=== PATIENT | female | born 1960 | race Caucasian/White ===

== ENCOUNTER 2018-05-13 12:45 | Outpatient (CLI) | payer OTHER ==
[~2018-05-13] VITALS: Ht 162.6 cm; Wt 136.1 kg
[2018-05-13 13:45] LABS: BASOPHILS % (AUTO) 0.5 % (0-1); EOSINOPHILS # (AUTO) 0.2 X10'3 (0-0.9); EOSINOPHILS % (AUTO) 3.1 % (0-6); LYMPHOCYTES # (AUTO) 2.2 X10'3 (1.1-4.8); LYMPHOCYTES % (AUTO) 36.8 % (21-51); MEAN CORPUSCULAR HEMOGLOBIN 28.5 PG (27.0-31.0); MEAN CORPUSCULAR HGB CONC 33.7 g/dL (33.0-36.5); MEAN CORPUSCULAR VOLUME 84.5 FL (78-98); MEAN PLATELET VOLUME 8.6 FL (7.4-10.4); MONOCYTES # (AUTO) 0.4 X10'3 (0-0.9); MONOCYTES % (AUTO) 6.8 % (2-12); NEUTROPHILS # (AUTO) 3.1 X10'3 (1.8-7.7); NEUTROPHILS % (AUTO) 52.8 % (42-75); PRE OP HEMATOCRIT 43.1 % (35.0-45.0); PRE OP HEMOGLOBIN 14.5 g/dL (12.0-16.0); PRE OP PLATELET COUNT 204 X10'3 (140-440); RED CELL DISTRIBUTION WIDTH 13.5 % (11.5-14.5)
[2018-05-13 14:02] LABS: ALBUMIN 3.7 G/DL (3.4-5.0); ALBUMIN/GLOBULIN RATIO 1.1 (1.1-1.5); ALKALINE PHOSPHATASE 47 IU/L (46-116); BLOOD UREA NITROGEN 15 MG/DL (7-18); BUN/CREATININE RATIO 19.2 (6.6-38.0); CALCIUM 9.3 MG/DL (8.5-10.1); CHLORIDE 104 MMOL/L (99-107); CREATININE 0.78 MG/DL (0.40-0.90); PRE OP ALT 46 U/L (30-65); PRE OP ANION GAP 8 (8-16); PRE OP AST 27 U/L (10-37); PRE OP BILIRUB, TOTAL 1.1 MG/DL (0.0-1.0); PRE OP GLUCOSE 95 MG/DL (70-104); PRE OP POTASSIUM 3.7 MMOL/L (3.4-5.1); PRE OP SODIUM 141 MMOL/L (135-145); TOTAL CARBON DIOXIDE 29.2 MMOL/L (24-32); TOTAL PROTEIN 7.1 G/DL (6.4-8.2); eGFR 75 ML/MIN
[2018-05-13] MEDS ORDERED: ASCO-261 PO (16:34)
[2018-05-13] MEDS ORDERED: CINN500C2 (16:34)
[2018-05-13] MEDS ORDERED: TRAM50TA2 PO (16:34)
[2018-05-13] MEDS ORDERED: PROP60TA19 PO (16:34)
[2018-05-13] MEDS ORDERED: INDO50CA14 PO (16:34)
[2018-05-13] MEDS ORDERED: MULT-1085 PO (16:34)
[2018-05-13] MEDS ORDERED: VITA1TAB20 PO (16:34)
[2018-05-13] MEDS ORDERED: OMEP40CA37 PO (16:34)
[2018-05-13] MEDS ORDERED: TUMERIC (16:34)
[2018-05-13] MEDS ORDERED: ACET-812 PO (16:34)
[2018-05-13] MEDS ORDERED: CHOL2000 PO (16:34)
[2018-05-21] MEDS ORDERED: ringers solution, lacted 1,000 ML IV SCH (05:00)
[2018-05-21] MEDS ORDERED: DOCUMENT DATE & TIME OF BETA-BLOCKER PO ONE (05:30)
[2018-05-21] MEDS ORDERED: oxyCODONE SR 10mg (sust. release) tab -2 tabs (20mg) PO ONE (05:30)
[2018-05-21] MEDS ORDERED: famotidine 20mg tablet PO ONE (05:30)
[2018-05-21] MEDS ORDERED: ceFAZolin inj. 3,000 MG in normal saline 100ml IV soln 100 ML IV ONE (05:30)
== END 2018-05-13 23:59 | disposition home or self-care (01) ==
LOC: PRE-OP 12:45 → EDSTATUS 05-21 15:15
PROVIDERS: ATTEND Orthopaedic Surgery
DX: M19.212 Secondary osteoarthritis, left shoulder (principal); Z01.812 Encounter for preprocedural laboratory examination; S43.422A Sprain of left rotator cuff capsule, initial encounter; M66.822 Spontaneous rupture of other tendons, left upper arm
CPT/HCPCS: 36415; 80053; 85025; 93005

== ENCOUNTER 2018-07-02 08:21 | Day surgery (SDC) | payer OTHER ==
[2018-06-24 13:04] LABS: BASOPHILS # (AUTO) 0.1 X10'3 (0-0.2); BASOPHILS % (AUTO) 1.3 % (0-1); EOSINOPHILS # (AUTO) 0.1 X10'3 (0-0.9); EOSINOPHILS % (AUTO) 2.4 % (0-6); LYMPHOCYTES # (AUTO) 1.9 X10'3 (1.1-4.8); LYMPHOCYTES % (AUTO) 35.3 % (21-51); MEAN CORPUSCULAR HEMOGLOBIN 28.2 PG (27.0-31.0); MEAN CORPUSCULAR HGB CONC 33.8 g/dL (33.0-36.5); MEAN CORPUSCULAR VOLUME 83.6 FL (78-98); MEAN PLATELET VOLUME 8.7 FL (7.4-10.4); MONOCYTES # (AUTO) 0.5 X10'3 (0-0.9); MONOCYTES % (AUTO) 8.4 % (2-12); NEUTROPHILS # (AUTO) 2.8 X10'3 (1.8-7.7); NEUTROPHILS % (AUTO) 52.6 % (42-75); PRE OP HEMATOCRIT 42.4 % (35.0-45.0); PRE OP HEMOGLOBIN 14.3 g/dL (12.0-16.0); PRE OP PLATELET COUNT 203 X10'3 (140-440); RED BLOOD COUNT 5.08 X10'6 (4.20-5.60); RED CELL DISTRIBUTION WIDTH 13.4 % (11.5-14.5)
[2018-06-24 13:17] LABS: ALBUMIN 3.6 G/DL (3.4-5.0); ALBUMIN/GLOBULIN RATIO 1.1 (1.1-1.5); ALKALINE PHOSPHATASE 47 IU/L (46-116); BLOOD UREA NITROGEN 14 MG/DL (7-18); BUN/CREATININE RATIO 17.3 (6.6-38.0); CALCIUM 9.4 MG/DL (8.5-10.1); CHLORIDE 106 MMOL/L (99-107); CREATININE 0.81 MG/DL (0.40-0.90); PRE OP ALT 43 U/L (30-65); PRE OP ANION GAP 7 (8-16); PRE OP AST 25 U/L (10-37); PRE OP BILIRUB, TOTAL 0.9 MG/DL (0.0-1.0); PRE OP GLUCOSE 106 MG/DL (70-104); PRE OP POTASSIUM 4.1 MMOL/L (3.4-5.1); PRE OP SODIUM 142 MMOL/L (135-145); TOTAL CARBON DIOXIDE 28.6 MMOL/L (24-32); TOTAL PROTEIN 6.8 G/DL (6.4-8.2); eGFR 72 ML/MIN
[~2018-07-02] VITALS: Ht 162.6 cm; Wt 145.8 kg
[2018-07-02] VITALS (14 sets, daily range): BP systolic 131–178; BP diastolic 72–99
[~2018-07-02 08:21] MED LIST: ASCO-261 PO; BETA15CR4 TOP; CHOL2000 PO; DOCUMENT DATE & TIME OF BETA-BLOCKER PO ONE; MULT-1085 PO; OMEP40CA37 PO; PROP60TA19 PO; TRAM50TA2 PO; VITA1TAB20 PO; acetaminophen 325mg tablet PO ONE; ceFAZolin inj. 3,000 MG in normal saline 100ml IV soln 100 ML IV ONE; famotidine 20mg tablet PO ONE; gabapentin 300mg capsule PO ONE; metoclopramide 5 mg/ml inj IV ONE; oxyCODONE SR 10mg (sust. release) tab -2 tabs (20mg) PO ONE; ringers solution, lacted 1,000 ML IV SCH; tranexamic acid inj. 1,000 MG in normal saline 100 ML IV ONE
[2018-07-02] MEDS ORDERED: epiNEPHrine 1 mg/ml 30ml MDV ONE (09:15)
[2018-07-02] MEDS ORDERED: BUPIVAcaine/PF 2.5mg/ml (0.25%) 10ml vial ONE ×2 (09:16→11:06)
[2018-07-02] MEDS ORDERED: ondansetron/PF 4mg/2ml inj ONE (10:31)
[2018-07-02] MEDS ORDERED: hydrALAZINE 20mg/ml inj. IV ONE (10:31)
[2018-07-02] MEDS ORDERED: sevoflurane 250ml liquid IH ONE (10:31)
[2018-07-02] MEDS ORDERED: midazolam 2 mg/2 ml injection ONE (10:32)
[2018-07-02] MEDS ORDERED: fentaNYL /PF 50mcg/ml 5ml ampule ONE (10:33)
[2018-07-02] MEDS ORDERED: meperidine/PF 25mg/ml syringe IV PRN ×2 (11:35)
[2018-07-02] MEDS ORDERED: ringers solution, lacted 1,000 ML IV SCH (11:35)
[2018-07-02] MEDS ORDERED: proCHLORperazine 10 MG/2 ml inj IV PRN (11:35)
[2018-07-02] MEDS ORDERED: ondansetron/PF 4mg/2ml inj IV PRN (11:35)
[2018-07-02] MEDS ORDERED: morphine 4 MG/ML inj SYRINge IV PRN ×2 (11:35)
--- NOTE | 2018-07-02 13:00 | NUR ---
Received from OR via BED , accompanied by Anesthesiologist and report given by Anesthesiolgist. PATIENT WAKING UP, DENIES PAIN, V/S WNL, NEUROVASCULAR CHECKS INTACT, 20G PIV RUE , DRESSING TO LEFT SHOULDER CDI W/ COLD POWDER PACK AND SLING W/ SCD ON.
[2018-07-02] MEDS ORDERED: LIDOcaine 2% (20mg/ml) 5ml vial ONE (13:26)
[2018-07-02] MEDS ORDERED: neostigmine methylsulfate 1 MG/ML 10ml vial ONE (13:26)
[2018-07-02] MEDS ORDERED: glycopyrrolate 0.2mg/ml inj ONE (13:26)
[2018-07-02] MEDS ORDERED: rocuronium 10mg/ml inj IV ONE (13:26)
[2018-07-02] MEDS ORDERED: dexamethasone sod phosphate 4mg/ml inj. ONE (13:26)
[2018-07-02] MEDS ORDERED: propofol inj 20 ML IV ONE (13:26)
[2018-07-02] MEDS: meperidine/PF 25mg/ml syringe IV PRN ×2 (13:26→13:39)
[2018-07-02] MEDS ORDERED: succinylcholine 20mg/ml inj IV ONE (13:26)
--- NOTE | 2018-07-02 15:00 | NUR ---
PATIENT A&OX4, DENIES PAIN, V/S WNL, NEUROVASCULAR CHECKS INTACT, 20G PIV D/C WITH NO COMPLICATIONS OBSERVED , DRESSING TO LEFT SHOULDER CDI W/ COLD POWDER PACK AND SLING, SCD OFF. I HAVE REVIEWED D/C INSTRUCTIONS WITH PATIENT AND FAMILY AND THEY HAVE VERBALIZED UNDERSTANDING. PATIENT D/C HOME WITH ALL BELONGINGS AND FAMILY GAVE TRANSPORT HOME.
== END 2018-07-02 15:00 | disposition home or self-care (01) ==
LOC: PAS 08:21
PROVIDERS: ATTEND Orthopaedic Surgery
DX: M75.22 Bicipital tendinitis, left shoulder (principal); M19.012 Primary osteoarthritis, left shoulder; M19.90 Unspecified osteoarthritis, unspecified site; G43.909 Migraine, unspecified, not intractable, without status migrainosus; M75.42 Impingement syndrome of left shoulder; K21.9 Gastro-esophageal reflux disease without esophagitis; Z88.8 Allergy status to other drugs, medicaments and biological substances; Z87.891 Personal history of nicotine dependence
CPT/HCPCS: 29824; 29826; 29827; 36415; 80053; 82948; 85025; A6258; A6449; C1713; J0171; J0330; J0360; J0690; J0780; J1100; J2001; J2175; J2250; J2405; J2704; J2710; J2765; J3010; J3490; J7120; A4565; A7000; J7030